=== PATIENT | female | born 1985 | race American Indian/Alaskan Native ===

== ENCOUNTER 2018-01-02 12:46 | Emergency (ER) | payer MEDICAID ==
[2018-01-02 12:51] VITALS: BP 124/83
--- NOTE | 2018-01-02 15:46 | Emergency Department Report ---
ED ENT HPI - General Chief complaint: Dental/Oral Stated complaint: TOOTHACHE Time Seen by Provider: 01/02/18 15:27 Source: patient Mode of arrival: Ambulatory Limitations: No Limitations - History of Present Illness Initial comments: This is a 32 y.o. female that presents with swelling to left side side of face and 2 fractured teeth for 3 days. Reports not being able to eat due to pain. Pain is 10/10 on pain scale. It is worse with chewing. She is having difficulty sleeping due to pain. She has tried OTC toothache gels without improvement of symptoms. She called her dentist office at [address] and they told her to go to the ER and f/u with them next week. Patient have an appointment next Friday. Denies difficulty swallowing, drooling, trauma, and sore throat. MD complaint: tooth pain -: days(s) (3) Location: tooth # (16 & 17) Severity: moderate Severity scale (0 -10): 9 Quality: stabbing, constant Consistency: constant Improves with: none Worsens with: eating Context- Dental: history of dental caries, trauma (fractured teeth, #16 &17), poor dental care Associated Symptoms: gum swelling, toothache - Related Data Previous Rx's Medication Instructions Recorded Last Taken Type Amoxicillin/Potassium Clav 1 each PO BID 10 Days #20 tablet 01/02/18 Unknown Rx [Augmentin 875-125 Tablet] traMADol [Ultram 50 MG tab] 50 mg PO Q6HR PRN #20 tablet 01/02/18 Unknown Rx Allergies Allergy/AdvReac Type Severity Reaction Status Date / Time No Known Allergies Allergy Unverified 01/02/18 12:50 ED Dental HPI - General Chief complaint: Dental/Oral Stated complaint: TOOTHACHE Time Seen by Provider: 01/02/18 15:27 Source: patient Mode of arrival: Ambulatory Limitations: No Limitations - Related Data Previous Rx's Medication Instructions Recorded Last Taken Type Amoxicillin/Potassium Clav 1 each PO BID 10 Days #20 tablet 01/02/18 Unknown Rx [Augmentin 875-125 Tablet] traMADol [Ultram 50 MG tab] 50 mg PO Q6HR PRN #20 tablet 01/02/18 Unknown Rx Allergies Allergy/AdvReac Type Severity Reaction Status Date / Time No Known Allergies Allergy Unverified 01/02/18 12:50 ED Review of Systems ROS: Stated complaint: TOOTHACHE Other details as noted in HPI Constitutional: denies: chills, fever ENT: dental pain (#16 & 17 fractured teeth, swelling to left jaw). denies: ear pain, throat pain, congestion Respiratory: denies: cough, shortness of breath, wheezing Cardiovascular: denies: chest pain, palpitations Gastrointestinal: denies: abdominal pain, nausea, diarrhea Skin: denies: rash, lesions Neurological: denies: headache, weakness, paresthesias, abnormal gait ED Past Medical Hx - Past Medical History Previous Medical History?: No - Surgical History Past Surgical History?: No - Social History Smoking Status: Never Smoker Substance Use Type: None - Medications Home Medications: Home Medications Medication Instructions Recorded Confirmed Last Taken Type Amoxicillin/Potassium Clav 1 each PO BID 10 Days #20 tablet 01/02/18 Unknown Rx [Augmentin 875-125 Tablet] traMADol [Ultram 50 MG tab] 50 mg PO Q6HR PRN #20 tablet 01/02/18 Unknown Rx ED Physical Exam - General Limitations: No Limitations General appearance: alert, in no apparent distress - ENT ENT exam: Present: mucous membranes moist, TM's normal bilaterally, other ( swollen left side of face, dental fractures to #16 & 17) - Respiratory Respiratory exam: Present: normal lung sounds bilaterally. Absent: respiratory distress, wheezes, rales, rhonchi, stridor, chest wall tenderness - Cardiovascular Cardiovascular Exam: Present: regular rate, normal rhythm, normal heart sounds. Absent: systolic murmur, diastolic murmur, rubs, gallop - GI/Abdominal GI/Abdominal exam: Present: soft, normal bowel sounds - Neurological Exam Neurological exam: Present: alert, oriented X3, normal gait - Psychiatric Psychiatric exam: Present: normal affect, normal mood - Skin Skin exam: Present: warm, dry, intact, normal color. Absent: rash ED Course Vital Signs 01/02/18 01/02/18 12:46 12:51 Temperature 98.8 F Pulse Rate 85 Respiratory 15 Rate Blood Pressure 124/83 O2 Sat by Pulse 100 Oximetry ED Medical Decision Making - Medical Decision Making This is a 32 y.o. female that presents with left side facial swelling and pain with toothaches for 3 days. Patient is stable and was examined by me. Patient is driving and given ibuprofen once in ER. Susceptible of dental caries and dental fractures. F/U with dentist. Discussed plan with patient. She agreed with ER plan. Discharged home with augmentin and tramadol. Follow up with dentist and referral to [facility]. Critical care attestation.: If time is entered above; I have spent that time in minutes in the direct care of this critically ill patient, excluding procedure time. ED Disposition Clinical Impression: Dental caries, Fracture of tooth (traumatic), initial encounter for closed fracture Disposition: TO HOME OR SELFCARE Is pt being admited?: No Does the pt Need Aspirin: No Condition: Stable Instructions: Toothache (ED), Dental Caries (ED) Additional Instructions: Complete all days of augmentin as prescribed for 10 days. Follow up with Dentist at [facility] in 24-72 hours Prescriptions: Amoxicillin/Potassium Clav [Augmentin 875-125 Tablet] 1 each PO BID 10 Days #20 tablet traMADol [Ultram 50 MG tab] 50 mg PO Q6HR PRN #20 tablet PRN Reason: Pain Referrals: [facility] [Outside] - 3-5 Days [facility] [Outside] - 3-5 Days [facility] [Outside] - 3-5 Days Forms: Work/School Release Form(ED) Time of Disposition: 15:54 Print Language: NAURUAN
[2018-01-02] MEDS ORDERED: MOTRIN PO ONE (15:49)
== END 2018-01-02 16:10 | disposition home or self-care (01) ==
LOC: ED 12:46
DX: S02.5XXA Fracture of tooth (traumatic), initial encounter for closed fracture (principal); K02.9 Dental caries, unspecified; X58.XXXA Exposure to other specified factors, initial encounter; Y93.89 Activity, other specified; Y99.8 Other external cause status; Y92.89 Other specified places as the place of occurrence of the external cause
CPT/HCPCS: 99282

== ENCOUNTER 2020-04-20 20:27 | Emergency (ER) | payer MEDICAID, OTHER ==
[2020-04-20 20:37] VITALS: BP 136/81
--- NOTE | 2020-04-20 21:36 | Emergency Department Report ---
Chief Complaint: Dental/Oral Stated Complaint: TOOTHACHE/HEADACHE Time Seen by Provider: 04/20/20 21:30 - HPI History of Present Illness: The patient is a 34-year-old female who presents to ED complaining of pain in the right side of his mouth x 4 days . Patient states that the pain started 4 days ago and has increased in severity over the last 2 days. The pain is exacerbated by eating and opening of the mouth. Patient states the pain is alleviated initially with pain medication but comes back. Patient states that she just realized that she has center insurance and has called her insurance carrier to find out where she can go for dental care Patient has had no fevers and no chills. No chest pain, no shortness of breath. No abdominal pain. No shortness of breath or recent trauma to the face. - ROS Review of Systems: As noted in HPI - Exam Vital Signs: Vital Signs 04/20/20 20:33 Temperature 99.3 F Pulse Rate 77 Respiratory 18 Rate Blood Pressure 136/81 O2 Sat by Pulse 100 Oximetry Physical Exam: GENERAL: Alert and oriented x3, no apparent distress, Normal Gait, atraumatic. MOUTH:Mouth is well hydrated and without lesions. Tonsils nonerythematous or swollen, Uvula midline, Tongue not elevated. Mucous membranes are moist. Posterior pharynx clear, no exudate or lesions. Patent airways. Dental cavities noted left side lower of tooth NECK: Supple. Non edematous, No carotid bruits. No lymphadenopathy or thyromegaly. No C-spine tenderness SKIN: Warm and dry, No lesions, No ulceration or induration present. MSE screening note: Focused history and physical exam performed. Due to findings the following was ordered: ED Medical Decision Making - Medical Decision Making 34-year-old female who presents with left-sided Facial pain secondary to odontogenic caries ED course: Pt has no evidence of acute impending airway compromise. At this point, patient will be discharged home on some antibiotics and pain trial, she will do well with an outpatient course of antibiotics. Follow up with the Dental Clinic as referred Vital signs are normal patient is in no acute distress. Pt had an effect uneventful ED stay ED Disposition for MSE Clinical Impression: Pain due to dental caries Disposition: MED SCREENING EXAM-LEFT Is pt being admited?: No Does the pt Need Aspirin: No Condition: Stable Instructions: Toothache (ED), Dental Caries (ED) Additional Instructions: Make sure to follow up with the dentist as discussed. Take all your medications as you've been prescribed. If you have any worsening symptoms or develop new symptoms please return to ED immediately. Prescriptions: Amoxicillin/Potassium Clav [Augmentin 875-125 Tablet] 1 each PO BID 10 Days #20 tablet Referrals: PRIMARY CARE, [Primary Care Provider] - 3-5 Days [facility] [Outside] - 3-5 Days [facility] [Outside] - 3-5 Days Forms: Work/School Release Form(ED) Time of Disposition: 21:33
== END 2020-04-20 21:45 | disposition left against medical advice (07) ==
LOC: ED 20:27
DX: K08.89 Other specified disorders of teeth and supporting structures (principal); Z53.21 Procedure and treatment not carried out due to patient leaving prior to being seen by health care provider